=== PATIENT | female | born 1975 | race African-American/Black ===

== ENCOUNTER 2018-01-21 08:06 | Emergency (ER) | payer OTHER ==
--- OUTSIDE RECORDS SUMMARY | 2018-01-21 08:09 | XMS REPORT | Clinical Summary ---
:1975 Author Organization [facility] Address [address] [place] [address] Care Team Providers Name Role Phone Sha Lazaro MD Primary Care Provider Unavailable Allergies Active Allergy Reactions Severity Noted Date Comments Penicillins Hives, Other (See Comments) Medium 06/15/2016 nausea Current Medications Prescription Sig. Disp. Refills Start Date End Date Status amLODIPine (NORVASC) Take 10 mg by Active 10 MG tablet mouth daily. cyanocobalamin 1,000 Inject 1,000 Active mcg/mL injection mcg into the shoulder, thigh, or buttocks every 30 (thirty) days. "Mid-Month" enoxaparin (LOVENOX) Inject 40 mg Active 40 mg/0.4 mL syringe under the skin daily. promethazine Take 25 mg by Active (PHENERGAN) 25 MG mouth every 6 tablet (six) hours as needed for nausea or vomiting. amitriptyline Take 10 mg by Active (ELAVIL) 10 MG tablet mouth nightly as needed for sleep. baclofen (LIORESAL) Take 10 mg by Active 10 MG tablet mouth every 4 (four) hours as needed for muscle spasms. cyclobenzaprine Take 10 mg by Active (FLEXERIL) 10 MG mouth nightly tablet as needed for muscle spasms. omeprazole (PriLOSEC) Take 40 mg by Active 40 MG capsule mouth daily. ursodiol (ACTIGALL) Take 300 mg Active 300 mg capsule by mouth 2 (two) times a day. HYDROcodone-acetamino 07/05/2016 Active phen (NORCO 10-325) 10-325 mg per tablet traMADol (ULTRAM) 50 07/04/2016 Active mg tablet nitrofurantoin, Take 100 mg Discontinued macrocrystal-monohydr by mouth 2 7 ate, (MACROBID) 100 (two) times a MG capsule day. X 7 days. nitrofurantoin, Take 1 14 capsule 0 05/30/2017 macrocrystal-monohydr capsule (100 7 ate, (MACROBID) 100 mg total) by MG capsule mouth 2 (two) times a day for 7 days. nitrofurantoin, Take 1 14 capsule 0 05/30/2017 Discontinued macrocrystal-monohydr capsule (100 7 ate, (MACROBID) 100 mg total) by MG capsule mouth 2 (two) times a day for 7 days. X 7 days. Active Problems Problem Noted Date Epigastric pain 06/28/2016 Gastric bypass status for obesity 06/19/2016 Encounters Date Type Specialty Care Team Description 05/30/2017 Emergency Emergency Medicine Brad Moe, Abdominal pain of unknown cause (Primary Dx); Chronic neck pain; Urinary tract infection, site unspecified after 01/20/2017 Family History Medical History Relation Name Comments Arthritis Father Asthma Father Heart disease Father Arthritis Mother Asthma Mother Heart disease Mother Relation Name Status Comments Father Mother Social History Tobacco Use Types Packs/Day Years Used Date Never Smoker Alcohol Use Drinks/Week oz/Week Comments No socially Sex Assigned at Date Recorded Not on file Last Filed Vital Signs Vital Sign Reading Time Taken Blood Pressure 136/88 05/30/2017 6:31 PM CDT Pulse 68 05/30/2017 6:31 PM CDT Temperature 37.1 C (98.7 F) 05/30/2017 1:00 PM CDT Respiratory Rate 16 05/30/2017 6:31 PM CDT Oxygen Saturation 100% 05/30/2017 6:31 PM CDT Inhaled Oxygen Concentration - - Weight - - Height 160 cm (5' 3") 05/30/2017 3:42 PM CDT Body Mass Index - - Plan of Treatment Health Maintenance Due Date Last Done Comments PAP SMEAR 1998 INFLUENZA VACCINE 04/17/2018 Results ECG ED Preliminary Interpretation - NOT AN ORDER (05/31/2017 5:44 PM) Narrative Brad Moe MD 05/31/20175:44 PM ECG ED Preliminary Interpretation - Not an Order Performed by: ROBERT DOMINGUEZ Authorized by: BRAD MOE ECG reviewed by ED Physician in the absence of a strip roller: yes Interpretation: Interpretation: normal Rate: ECG rate:77 ECG rate assessment: normal Rhythm: Rhythm: sinus rhythm Ectopy: Ectopy: none QRS: QRS intervals:Normal Conduction: Conduction: normal ST segments: ST segments:Normal T waves: T waves: normal ECG 12 lead (05/30/2017 6:45 PM) Component Value Ref Range Ventricular rate 77 Atrial rate 77 MD interval 160 QRSD interval 82 QT interval 360 QTC interval 407 P axis 1 47 QRS axis 1 16 T wave axis 30 EKG impression Normal sinus rhythm-Normal ECG-In automated comparison with ECG of 15-JUN-2016 14:33,-No significant change was found- Specimen Performing Laboratory [facility] [address] [place] [address] CT Head Wo Contrast (05/30/2017 5:40 PM) Specimen Performing Laboratory [facility] [address] [place] [address] Narrative EXAMINATION: CT HEAD WO CONTRAST CLINICAL HISTORY: headache COMPARISON:None TECHNIQUE: Noncontrast enhanced images of the brain were obtained from the skull base to the vertex. Both soft tissue and bone reconstruction algorithms were performed.CT scans are performed using radiation dose reduction techniques. Technical factors are evaluated and adjusted to ensure appropriate moderation of exposure. Automated dose management technology is applied to adjust radiation exposure while achieving a diagnostic quality image. FINDINGS: Artifacts obscure some details. There is no evidence of acute intracranial hemorrhage or mass, hydrocephalus or midline shift, stroke or thrombus in the vessels. There is a cavum septum pellucidum. There is mild enlargement of the ventricles and extra axial space. The sella is slightly enlarged and partially empty. The sinuses, mastoid air cells and orbits do not show significant abnormality. There is nonspecific increased bone density. IMPRESSION: No acute findings in the brain. Nonspecific enlarged partially empty sella. I cannot exclude pseudotumor cerebri on this exam. [facility]-[id number] Procedure Note Interface, Radiology Results Incoming - 05/30/2017 5:47 PM CDT EXAMINATION: CT HEAD WO CONTRAST CLINICAL HISTORY: headache COMPARISON: None TECHNIQUE: Noncontrast enhanced images of the brain were obtained from the skull base to the vertex. Both soft tissue and bone reconstruction algorithms were performed. CT scans are performed using radiation dose reduction techniques. Technical factors are evaluated and adjusted to ensure appropriate moderation of exposure. Automated dose management technology is applied to adjust radiation exposure while achieving a diagnostic quality image. FINDINGS: Artifacts obscure some details. There is no evidence of acute intracranial hemorrhage or mass, hydrocephalus or midline shift, stroke or thrombus in the vessels. There is a cavum septum pellucidum. There is mild enlargement of the ventricles and extra axial space. The sella is slightly enlarged and partially empty. The sinuses, mastoid air cells and orbits do not show significant abnormality. There is nonspecific increased bone density. IMPRESSION: No acute findings in the brain. Nonspecific enlarged partially empty sella. I cannot exclude pseudotumor cerebri on this exam. [facility]-[id number] CT Cervical Spine Wo Contrast (05/30/2017 5:40 PM) Specimen Performing Laboratory [facility] [address] [place] [address] Narrative EXAMINATION:CT CERVICAL SPINE WO CONTRAST CLINICAL HISTORY:neck pain COMPARISON:None. TECHNIQUE: Axial helical CT images throughout theCERVICAL spine were performed without contrast. Sagittal and coronal reformatted images were generated. CT scans are performed using radiation dose reduction techniques. Technical factors are evaluated and adjusted to ensure appropriate moderation of exposure. Automated dose management technology is applied to adjust radiation exposure while achieving a highly diagnostic quality image. FINDINGS: Sagittal image reconstructions demonstrate straightening of the cervical lordosis which may be positional in nature. There is anterior spur formation with minimal disc space narrowing at C4-5. Axial images demonstrate the following: C1-2: No definite acute abnormalities. C2-3: No definite acute abnormalities. C3-4: No definite acute abnormalities. C4-5: There is minimal anterior spur formation. There is no definite acute abnormality. C5-6: No definite acute abnormality. C6-7: No definite acute abnormality. C7-T1: No definite acute abnormalities. There is no atlantoaxial subluxation. There is no definite prevertebral soft tissue swelling or hematoma. IMPRESSION: Minimal anterior spondylotic spurs at C4-5. No definite acute fracture or prevertebral hemorrhage. [facility]-[id number] Procedure Note Interface, Radiology Results 05/30/2017 5:56 PM CDT EXAMINATION: CT CERVICAL SPINE WO CONTRAST CLINICAL HISTORY: neck pain COMPARISON: None. TECHNIQUE: Axial helical CT images throughout the CERVICAL spine were performed without contrast. Sagittal and coronal reformatted images were generated. CT scans are performed using radiation dose reduction techniques. Technical factors are evaluated and adjusted to ensure appropriate moderation of exposure. Automated dose management technology is applied to adjust radiation exposure while achieving a highly diagnostic quality image. FINDINGS: Sagittal image reconstructions demonstrate straightening of the cervical lordosis which may be positional in nature. There is anterior spur formation with minimal disc space narrowing at C4-5. Axial images demonstrate the following: C1-2: No definite acute abnormalities. C2-3: No definite acute abnormalities. C3-4: No definite acute abnormalities. C4-5: There is minimal anterior spur formation. There is no definite acute abnormality. C5-6: No definite acute abnormality. C6-7: No definite acute abnormality. C7-T1: No definite acute abnormalities. There is no atlantoaxial subluxation. There is no definite prevertebral soft tissue swelling or hematoma. IMPRESSION: Minimal anterior spondylotic spurs at C4-5. No definite acute fracture or prevertebral hemorrhage. [facility]-[id number] CT Abdomen Pelvis W Contrast (05/30/2017 5:39 PM) Specimen Performing Laboratory [address] [address] Narrative EXAMINATION:CT ABDOMEN PELVIS W CONTRAST CLINICAL HISTORY:abdominal paindiarrhea TECHNIQUE: Multiple axial images of the abdomen and pelvis were obtained following intravenous administration of iodinated contrast. Sagittal and coronal computerized reformatted images were also obtained. Approximately 100 cc of Omnipaque 300 was used. Oral contrast was also used. All CT scan performed using radiation dose reduction techniques. Technical factors are evaluated and adjusted to ensure appropriate moderation of exposure. Automated dose management technology is applied to adjust the radiation dose to minimize expose whileachieving a diagnostic quality image. COMPARISON:10/02/2016 FINDINGS: Lung bases: The lung bases are clear. The visualized portion of the heart and thoracic aorta are unremarkable. Liver: There is no intrahepatic biliary dilatation or mass. The liver is normal in attenuation, contour and size. Gallbladder: Surgically absent. Pancreas: The pancreas is normal in caliber and attenuation. No inflammatory process. The pancreatic duct is within normal limits. Spleen: The spleen is normal in appearance.. Kidneys and ureters: The kidneys function symmetrically. There is no enhancing renal lesion. No hydronephrosis or renal stone. The ureters are normal in course and caliber. Adrenal glands: Unremarkable. GI tract: Postsurgical change of gastric bypass is again seen. Focal nodular thickening is seen of the distal stomach, series 2 image #[id number]. There has been interval resolution of mural thickening of the stomach. Partial contraction of the stomach is also noted. The small bowel is normal in course and caliber. The colon is unremarkable. No bowel wall thickening is identified. There is no acute inflammatory process. The appendix is normal. No right lower quadrant inflammation is seen. Ascites: None. Pelvis: The urinary bladder is within normal limits. Lobular in contour of the uterus is again seen, suggestive of fibroids.. Bones: Unremarkable. Retroperitoneum: No retroperitoneal or mesenteric lymphadenopathy is seen. The abdominal aorta is normal in course and caliber. The visceral and mesenteric vascular branches are patent. Abdominal wall: Unremarkable. IMPRESSION: No CT evidence of appendicitis, colitis or bowel obstruction. Nodular mural thickening of the distal stomach. Recommend clinical correlation and endoscopy for further evaluation. Incidental note of probable uterine fibroids. Pelvic ultrasound would be of use for confirmation. [id number] Procedure Note Interface, Radiology Results Incoming - 05/30/2017 5:54 PM CDT EXAMINATION: CT ABDOMEN PELVIS W CONTRAST CLINICAL HISTORY: abdominal pain diarrhea TECHNIQUE: Multiple axial images of the abdomen and pelvis were obtained following intravenous administration of iodinated contrast. Sagittal and coronal computerized reformatted images were also obtained. Approximately 100 cc of Omnipaque 300 was used. Oral contrast was also used. All CT scan performed using radiation dose reduction techniques. Technical factors are evaluated and adjusted to ensure appropriate moderation of exposure. Automated dose management technology is applied to adjust the radiation dose to minimize expose while achieving a diagnostic quality image. COMPARISON: 10/02/2016 FINDINGS: Lung bases: The lung bases are clear. The visualized portion of the heart and thoracic aorta are unremarkable. Liver: There is no intrahepatic biliary dilatation or mass. The liver is normal in attenuation, contour and size. Gallbladder: Surgically absent. Pancreas: The pancreas is normal in caliber and attenuation. No inflammatory process. The pancreatic duct is within normal limits. Spleen: The spleen is normal in appearance.. Kidneys and ureters: The kidneys function symmetrically. There is no enhancing renal lesion. No hydronephrosis or renal stone. The ureters are normal in course and caliber. Adrenal glands: Unremarkable. GI tract: Postsurgical change of gastric bypass is again seen. Focal nodular thickening is seen of the distal stomach, series 2 image #[id number]. There has been interval resolution of mural thickening of the stomach. Partial contraction of the stomach is also noted. The small bowel is normal in course and caliber. The colon is unremarkable. No bowel wall thickening is identified. There is no acute inflammatory process. The appendix is normal. No right lower quadrant inflammation is seen. Ascites: None. Pelvis: The urinary bladder is within normal limits. Lobular in contour of the uterus is again seen, suggestive of fibroids.. Bones: Unremarkable. Retroperitoneum: No retroperitoneal or mesenteric lymphadenopathy is seen. The abdominal aorta is normal in course and caliber. The visceral and mesenteric vascular branches are patent. Abdominal wall: Unremarkable. IMPRESSION: No CT evidence of appendicitis, colitis or bowel obstruction. Nodular mural thickening of the distal stomach. Recommend clinical correlation and endoscopy for further evaluation. Incidental note of probable uterine fibroids. Pelvic ultrasound would be of use for confirmation. [id number] Estimated GFR (05/30/2017 4:46 PM) Component Value Ref Range GFR Non Af Amer 61 mL/min/1.73 m2 GFR Af Amer 74 mL/min/1.73 m2 Comment: Chronic kidney disease: <60 mL/min/1.73m2 Kidney failure: <15 mL/min/1.73m2 The estimated GFR is calculated from the IDMS-traceable Modification of Diet in Renal Disease Equation. The accuracy of the calculation is poor when the creatinine is normal. Calculated values >90 mL/min/1.73m2 are not reported. This equation has not been validated in children (<18 years), women, the elderly (>70 years), or ethnic groups other than Caucasians and Americans. Specimen Performing Laboratory Plasma specimen [facility] DEPARTMENT OF PATHOLOGY AND GENOMIC MEDICINE [address] [facility] [place] [address] CBC with platelet and differential (05/30/2017 4:46 PM) Component Value Ref Range WBC 9.3 4.5 - 11.0 k/uL RBC 3.91 (L) 4.20 - 5.50 m/uL HGB 10.6 (L) 12.0 - 16.0 g/dL HCT 34.1 (L) 37.0 - 47.0 % MCV 87.2 82.0 - 100.0 fL MCH 27.1 27.0 - 34.0 pg MCHC 31.1 31.0 - 37.0 g/dL RDW - SD 51.4 37.0 - 55.0 fL MPV 10.0 6.9 - 11.0 fL Platelet count 376 150 - 400 K/uL Nucleated RBC 0.00 /100 WBC Neutrophils 60.1 39.0 - 69.0 % Lymphocytes 25.3 25.0 - 45.0 % Monocytes 7.8 0.0 - 10.0 % Eosinophils 5.6 (H) 0.0 - 5.0 % Basophils 0.9 0.0 - 1.0 % Immature granulocytes 0.3 0.0 - 1.0 % Specimen Performing Laboratory Blood [facility] DEPARTMENT PATHOLOGY AND [address] [address] Lipase level (05/30/2017 4:46 PM) Component Value Ref Range Lipase 37 13 - 60 U/L Specimen Performing Laboratory Plasma specimen [facility] PATHOLOGY [address] [address] Amylase level (05/30/2017 4:46 PM) Component Value Ref Range Amylase 41 13 - 73 U/L Specimen Performing Laboratory Plasma specimen [facility] PATHOLOGY [address] [address] Comprehensive metabolic panel (05/30/2017 4:46 PM) Component Value Ref Range Sodium 140 135 - 148 mEq/L Potassium 4.4 3.5 - 5.0 mEq/L Chloride 104 98 - 112 mEq/L CO2 24 24 - 31 mEq/L Anion gap 12 7 - 15 mEq/L Comment: Starting from December , anion gap calculation no longer incorporates potassium. Please note the change. BUN 14 6 - 20 mg/dL Creatinine 1.0 (H) 0.5 - 0.9 mg/dL Glucose 88 65 - 99 mg/dL Calcium 8.9 8.3 - 10.2 mg/dL Protein 7.2 6.3 - 8.3 g/dL Albumin 3.9 3.5 - 5.0 g/dL A/G ratio 1.2 0.7 - 3.8 Alkaline phosphatase 132 (H) 35 - 104 U/L AST 30 10 - 35 U/L ALT 29 5 - 50 U/L Total bilirubin <0.2 0.2 - 1.2 mg/dL Specimen Performing Laboratory Plasma specimen [facility] PATHOLOGY [address] [address] Urinalysis screen and microscopy, with reflex to culture (05/30/2017 3:05 PM) Component Value Ref Range Specimen site Clean catch Color, UA Yellow Appearance, UA Sl Cloudy Specific gravity, UA 1.029 1.001 - 1.030 pH, UA 5.0 5.0 - 9.0 Protein, UA Negative Negative Glucose, UA Negative Negative Ketones, UA Negative Negative Bilirubin, UA Negative Negative Blood, UA Moderate (A) Negative Nitrite, UA Negative Negative Urobilinogen, UA <2.0 <2.0 E.U./dL Leukocyte esterase, UA Trace (A) Negative Epithelial cells, UA >20 /HPF Round epithelial cells, UA 1 0 - 5 /HPF WBC, UA 5 (H) 0 - 4 /HPF RBC, UA 6 (H) 0 - 2 /HPF Bacteria, UA Few None seen Yeast, UA None seen Yeast with pseudohyphae, UA None seen Calcium oxalate crystals, UA Few Hyaline casts, UA 2-5 /LPF Specimen Performing Laboratory Urine [facility] DEPARTMENT OF PATHOLOGY AND GENOMIC MEDICINE [address] [place] [id number] hCG qualitative, urine screen (05/30/2017 3:05 PM) Component Value Ref Range hCG qualitative, urine NegativeComment: Sensitivity of HCG test: 25 mIU/ml Specimen Performing Laboratory Urine [facility] DEPARTMENT OF PATHOLOGY AND GENOMIC MEDICINE [address] [place] [id number] Urine drugs of abuse screen (05/30/2017 3:05 PM) Component Value Ref Range Amphetamine screen, urine Negative Methamphetamine screen, urine SEE COMMENT Comment: Footnote--------- Test Not Performed. Barbiturate screen, urine Positive (A) Benzodiazepine screen, urine Positive (A) Cocaine screen, urine Negative Methadone screen, urine SEE COMMENT Comment: Footnote--------- Test Not Performed. Opiates screen, urine Positive (A) Phencyclidine screen, urine Negative Cannabinoid screen, urine Positive (A) Tricyclic screen, urine Positive (A) Comment: Drug screen minimum concentration of detectability [id number] ng/mL [id number] ng/mL Barbiturates 300 ng/mL Uodujtxnhjnkaav639 ng/mL Ieeskif449 ng/mL Dobzinyue854 ng/mL Zvsxkbu493 ng/mL Phencyclidine 25 ng/mL Hgrqyrfxcqin34 ng/mL Bdxwcpwsha0811 ng/mL Negative test results indicates presumptive evidence of lack of clinically significant drug concentration in this urine specimen. Positive test results are presumptive evidence of clinically significant drug concentration in this urine specimen. Testing performed for medical purposes only. Specimen Performing Laboratory Urine [facility] DEPARTMENT OF PATHOLOGY AND GENOMIC MEDICINE [id number] [place] [id number] Gram stain (05/30/2017 3:05 PM) Component Value Ref Range Gram stain result No WBC's Occasional Gram positive rods Comment: Specimen Information Specimen Source: Urine Specimen Site: See UA Specimen Performing Laboratory Urine [facility] DEPARTMENT OF PATHOLOGY AND GENOMIC MEDICINE [address] [place] [id number] Urine culture (05/30/2017 3:05 PM) Component Value Ref Range Urine culture isolate Mixed Gram positive roopa 10-3 cfu/ml (A) Comment: Specimen Information Specimen Source: Urine Specimen Site: See UA Specimen Performing Laboratory Urine [facility] DEPARTMENT OF PATHOLOGY AND GENOMIC MEDICINE [address] [place] [id number] after 01/20/2017 Insurance Payer Benefit Plan / Group Subscriber ID Type Phone Address [facility] xxxxxxxxx O
--- OUTSIDE RECORDS SUMMARY | 2018-01-21 08:09 | XMS REPORT | Clinical Summary ---
:1975 Author Organization [facility] Address [address] [place] [address] Phone Care Team Providers Name Role Phone Unavailable Primary Care Provider Unavailable Allergies Active Allergy Reactions Severity Noted Date Comments Penicillins Hives, Other (See Comments) Medium 06/15/2016 nausea Nsaids (Non-Steroidal 09/13/2017 Anti-Inflammatory Drug) Current Medications Prescription Sig. Disp. Refills Start Date End Date Status amLODIPine Take 10 mg by Active (NORVASC) 10 MG mouth daily. tablet SUMAtriptan Take 50 mg by Active (IMITREX) 50 MG mouth once as tablet needed for Headaches. HYDROcodone-acetami Take 1 tablet Active nophen (NORCO by mouth 2 5-325) 5-325 mg per (two) times tablet daily . butalbital-acetamin Take 1-2 20 tablet 0 09/13/2017 09/13/2018 Active ophen-caffeine tablets by (FIORICET) mouth every 6 50-325-40 mg per (six) hours as tablet needed for Headaches. butalbital-aspirin- Take 1 capsule 11/09/2017 Discontinued caffeine-codeine by mouth every (BUTALBITAL-ASPIRIN 4 (four) hours -CAFFEINE-CODEINE) as needed for 50-20-789-40 mg Pain. capsule meclizine Take 1 tablet 30 tablet 0 09/13/2017 09/23/2017 (ANTIVERT) 12.5 mg (12.5 mg tablet total) by mouth 3 (three) times daily as needed for up to 10 days. Active Problems Not on file Encounters Date Type Specialty Care Team Description 11/09/2017 Orders Only Lab Cheri Gill, Chronic intractable MD headache, unspecified Gallo Mota, headache type (Primary MD Dx) 11/09/2017 Hospital Encounter Radiology Cheri Gill, Chronic intractable MD headache, unspecified Gallo Mota, headache MD type;Intractable migraine without status migrainosus, unspecified migraine type 11/05/2017 Outside Orders Central Scheduling Cheri Gill, Chronic intractable MD headache, unspecified headache type (Primary Dx);Intractable migraine without status migrainosus, unspecified migraine type 09/19/2017 Hospital Encounter Cheri Gill, Nonintractable MD headache, unspecified chronicity pattern, unspecified headache type 09/13/2017 Emergency Emergency Medicine Tu, Jessica, DO Nonintractable headache, unspecified chronicity pattern, unspecified headache type (Primary Dx);Dizziness 08/31/2017 Outside Orders Central Scheduling System, Provider Nonintractable Not In headache, unspecified chronicity pattern, unspecified headache type (Primary Dx) after 01/20/2017 Family History Medical History Relation Name Comments Hypertension Father Hypertension Mother Hypertension Other grandmother Relation Name Status Comments Father Mother Other grandmother Social History Tobacco Use Types Packs/Day Years Used Date Never Smoker Smokeless Tobacco: Never Used Alcohol Use Drinks/Week oz/Week Comments No Sex Assigned at Date Recorded Not on file Last Filed Vital Signs Vital Sign Reading Time Taken Blood Pressure 128/80 11/09/2017 3:30 PM SPECIAL EVENTS COORDINATOR Pulse 66 11/09/2017 3:30 PM SPECIAL EVENTS COORDINATOR Temperature 36.9 C (98.4 F) 11/09/2017 12:17 PM SPECIAL EVENTS COORDINATOR Respiratory Rate 18 11/09/2017 3:30 PM SPECIAL EVENTS COORDINATOR Oxygen Saturation 99% 11/09/2017 3:30 PM SPECIAL EVENTS COORDINATOR Inhaled Oxygen Concentration - - Weight 76.7 kg (169 lb) 11/09/2017 12:17 PM SPECIAL EVENTS COORDINATOR Height 160 cm (5' 3") 11/09/2017 12:17 PM SPECIAL EVENTS COORDINATOR Body Mass Index 29.94 11/09/2017 12:17 PM SPECIAL EVENTS COORDINATOR Plan of Treatment Not on file Results Cytology (11/09/2017 5:00 PM) Component Value Ref Range Case Report Medical Cytology Report Case: [id number] Authorizing Provider:Gallo Mota MDCollected: 11/09/2017 1700 [facility] Pathologist: Denzel Umana MD Specimen:CSF, tube 2 DIAGNOSIS CEREBROSPINAL FLUID (CYTOSPINS): - NO MALIGNANT CELLS IDENTIFIED Signing Pathologist Direct Phone Line: [phone] CPT Code(s) 25345 CLINICAL DATA Migraines SPECIMEN SOURCE CEREBROSPINAL FLUID (CYTOSPINS) GROSS DESCRIPTION 3 mls colorless; 2 cytospins Collected: [id number] Received: [id number] STATEMENT OF ADEQUACY Satisfactory Technical component was performed at [facility], Department of Pathology, [address] [place] [id number], Professional component was performed [facility], at Department of Pathology, [address] [place] [address], Specimen Performing Laboratory Cerebrospinal Fluid - CSF, tube [address] [address] CSF culture + gram stain (11/09/2017 2:55 PM) Component Value Ref Range Result No growth Gram Stain Result <1+ WBCs Gram Stain Result No organisms seen Specimen Performing Laboratory Cerebrospinal Fluid - Lumbar Puncture [address] [address] Protein Electrophoresis, CSF (11/09/2017 2:52 PM) Component Value Ref Range Scan Result Protein electrophoresis, CSF Refer to individual Protein Electrophoresis, CSF results. Specimen Performing Laboratory Cerebrospinal Fluid - Lumbar Puncture [facility] [address] [address] IgG Index (CSF + Blood) (11/09/2017 2:52 PM) Component Value Ref Range Synthesis Rate IgG, CSF -4.0 -9.9 TO +3.3 mg/24 h Igg Index,Csf 0.44 LESS THAN 0.66 Albumin, CSF 15.2 8.0 - 42.0 mg/dL IgG, CSF 2.0 0.8 - 7.7 mg/dL Igg,Serum 995 694 - 1618 mg/dL Albumin, Serum 3.3 (L) 3.7 - 5.1 g/dL Comment: The IgG Synthesis rate, CSF and IgG index, CSF are two formulae for estimating the amount of IgG produced in the central nervous system. Evidence of increased synthesis of IgG provides support for the diagnosis of multiple sclerosis. Specimen Performing Laboratory Cerebrospinal Fluid - Lumbar Puncture [facility] [address] [address] Narrative Performing Lab [facility] [address] [address] Lois Mehta MD, PhD Immunoglobulin G, CSF (11/09/2017 2:52 PM) Component Value Ref Range IgG, CSF 2.0 0.8 - 7.7 mg/dL Specimen Performing Laboratory Cerebrospinal Fluid - Lumbar Puncture [facility] [address] [address] Narrative Performing Lab [facility] [address] [address] Lois Mehta MD, PhD Protein Electrophoresis, CSF (11/09/2017 2:52 PM) Component Value Ref Range Protein Electrophoresis, CSF Pre-Albumin (CSF) 4.5 1.3 - 6.9 relative % Albumin, CSF 56.7 51.9 - 67.8 relative % Otaew-3-Pnyuhfby CSF 5.0 1.8 - 6.5 relative % Myagz-7-Odkcsqmw CSF 8.0 4.6 - 10.8 relative % Beta Globulin (CSF) 13.2 7.8 - 18.2 relative % Gamma Globulin (CSF) 12.6 4.8 - 17.6 relative % Interpretation SEE BELOW See Note: Comment: Reference Range: PATTERN APPEARS NORMAL No abnormal proteins detected by visual inspection of the electrophoretic membrane.CSF electrophoretic pattern appears normal. Specimen Performing Laboratory Cerebrospinal Fluid - Lumbar Puncture [facility] [address] [address] Narrative Performing Lab [facility] [address] [address] Lois Mehta MD, PhD Oligoclonal bands (11/09/2017 2:52 PM) Component Value Ref Range Oligo Bands NO BANDS NO BANDS Comment: No oligoclonal bands were identified in this patient's CSF when compared to their corresponding serum sample. Oligoclonal bands are present in the CSF of more than 85% of patients with clinically definite multiple sclerosis (MS). To distinguish between oligoclonal bands in the CSF due to a peripheral gammopathy and oligoclonal bands due to local production in the INVESTOR RELATIONS DIRECTOR, serum and CSF should be tested simultaneously. Oligoclonal bands can however be observed in a variety of other diseases, e.g., subacute sclerosing panencephalitis, inflammatory polyneuropathy, INVESTOR RELATIONS DIRECTOR lupus, and brain tumors and infarctions. The clinical significance of a numerical band count, determined by isoelectric focusing, has not been definitively defined. The data should be interpreted in conjunction with all pertinent clinical and laboratory data for this patient. FINAL RESOLUTION Specimen Performing Laboratory Cerebrospinal Fluid - Lumbar Puncture [facility] [address] [address] Narrative Performing Lab [facility] [address] [address] Lois Mehta MD, PhD CSF cell count with differential (11/09/2017 2:52 PM) Component Value Ref Range Appearance Clear Clear Color Colorless Colorless RBCs 0 0 - 5 /cu mm WBCs 0 <=5 /cu mm RBCs Fresh? Not Applicable # of Cells Diff'd 0 Tube Number 1 Specimen Performing Laboratory Cerebrospinal Fluid - Lumbar Puncture [address] [address] VDRL, CSF (11/09/2017 2:52 PM) Component Value Ref Range VDRL, CSF Nonreactive Nonreactive Specimen Performing Laboratory Cerebrospinal Fluid - Lumbar Puncture [address] [address] Protein, CSF (11/09/2017 2:52 PM)Only the most recent of2 resultswithin the time period is included. Component Value Ref Range Protein, Total (CSF) 31 15 - 45 mg/dL Specimen Performing Laboratory Cerebrospinal Fluid - Lumbar Puncture [facility] [address] [address] Narrative Performing Lab [facility] [address] [address] Lois Mehta MD, PhD Glucose, CSF (11/09/2017 2:52 PM) Component Value Ref Range Glucose, CSF 48 40 - 70 mg/dL Specimen Performing Laboratory Cerebrospinal Fluid - Lumbar Puncture [address] [address] [place] Lumbar Puncture Image-Guided (11/09/2017 2:15 PM) Specimen Performing Laboratory [facility] Narrative FINAL REPORT Procedure: Fluoroscopic guided diagnostic lumbar puncture Radiologist: Timmy Wynn M.D. CLINICAL HISTORY: Chronic headaches [R51] Intractable migraine [G43.919] DESCRIPTION OF PROCEDURE: After obtaining informed consent, the patient was prepped and draped on the fluoroscopy table following the usual sterile fashion for lumbar puncture. 1% lidocaine was administered for local anesthesia. Using fluoroscopic guidance, a 22-gauge spinal needle advanced into the thecal sac at the L2-L3 level. The opening pressure was approximately 25 cm of water. The requested 20 cc of clear spinal fluid was removed and sent to the laboratory for the requested studies.There were no periprocedural complications. Fluoroscopic images: 1. Fluoroscopic time: 0.1 minutes. Impression: Successful fluoroscopic guided lumbar puncture. Signed: Timmy Wynn MD Report Verified Date/Time:11/09/2017 16:16:13 Reading Location: [address] Neuro Reading Room Procedure Note Interface, External Ris In - 11/09/2017 4:18 PM SPECIAL EVENTS COORDINATOR FINAL REPORT Procedure: Fluoroscopic guided diagnostic lumbar puncture Radiologist: Timmy Wynn M.D. CLINICAL HISTORY: Chronic headaches [R51] Intractable migraine [G43.919] DESCRIPTION OF PROCEDURE: After obtaining informed consent, the patient was prepped and draped on the fluoroscopy table following the usual sterile fashion for lumbar puncture. 1% lidocaine was administered for local anesthesia. Using fluoroscopic guidance, a 22-gauge spinal needle advanced into the thecal sac at the L2-L3 level. The opening pressure was approximately 25 cm of water. The requested 20 cc of clear spinal fluid was removed and sent to the laboratory for the requested studies. There were no periprocedural complications. Fluoroscopic images: 1. Fluoroscopic time: 0.1 minutes. Impression: Successful fluoroscopic guided lumbar puncture. Signed: Timmy Wynn MD Report Verified Date/Time: 11/09/2017 16:16:13 Reading Location: [address] Neuro Reading Room Screen, urine (11/09/2017 10:08 AM)Only the most recent of2 resultswithin the time period is included. Component Value Ref Range Preg Test, Ur Negative Specimen Performing Laboratory Urine [facility] [address] [place] [address] MR brain without IV contrast (09/19/2017 2:10 PM) Specimen Performing Laboratory RIS Narrative FINAL REPORT MRI brain without contrast 09/19/2017 2:00 PM CLINICAL INDICATION: R51\\E\\S\\E\\Headache TECHNIQUE: Multiplanar, multisequence MR imaging of the brain was performed utilizing the following imaging sequences: Axial T1, T2, FLAIR, GRE, and DWI; sagittal and coronal T1-weighted images. COMPARISON: CT brain 09/13/2017 FINDINGS: There is no infarct, hematoma, mass, extra-axial collection, or hydrocephalus. Normal appearing flow-voids are present in the major intracranial vascular structures. 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 There is a cavum septi pellucidi et vergae. The sellar and pineal regions are normal. The craniovertebral junction is intact. The orbits, face, and skull base are without worrisome finding. IMPRESSION: Unremarkable noncontrast examination. Signed: Juliocesar Kraus MD Report Verified Date/Time:09/19/2017 14:30:16 Reading Location: [address] Neuro Reading Room Procedure Note Interface, External Ris In - 09/19/2017 2:32 PM SPECIAL EVENTS COORDINATOR FINAL REPORT MRI brain without contrast 09/19/2017 2:00 PM CLINICAL INDICATION: R51\\E\\S\\E\\Headache TECHNIQUE: Multiplanar, multisequence MR imaging of the brain was performed utilizing the following imaging sequences: Axial T1, T2, FLAIR, GRE, and DWI; sagittal and coronal T1-weighted images. COMPARISON: CT brain 09/13/2017 FINDINGS: There is no infarct, hematoma, mass, extra-axial collection, or hydrocephalus. Normal appearing flow-voids are present in the major intracranial vascular structures. 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 There is a cavum septi pellucidi et vergae. The sellar and pineal regions are normal. The craniovertebral junction is intact. The orbits, face, and skull base are without worrisome finding. IMPRESSION: Unremarkable noncontrast examination. Signed: Juliocesar Kraus MD Report Verified Date/Time: 09/19/2017 14:30:16 Reading Location: [facility] C013V Neuro Reading Room -SCANNED (09/14/2017 11:04 AM)ED ECG Interpretation (09/13/2017 5:12 PM) Narrative Jessica Florian, 09/13/20175:12 PM ECG/EKG Interpretation Date/Time: 09/13/2017 4:59 PM Performed by: JESSICA FLORIAN Authorized by: JESSICA FLORIAN The ECG was interpreted by ED physician. This ECG was not compared with previous ECG(s).The ECG is interpreted as sinus rhythm. Rate is normal rate. Heart rate is [address] segments normal. T waves normal. [place] is normal. Clinical Impression: normal ECGECG reviewed and does not meet STEMI criteria. CT brain without IV contrast (09/13/2017 2:16 PM) Specimen Performing Laboratory [place] RIS Narrative FINAL REPORT CT Head without contrast CLINICAL HISTORY: HEADACHE dizziness TECHNIQUE: Contiguous axial images through the head without contrast. This exam was performed according to the departmental dose optimization program which includes automated exposure control, adjustment of the mA and/or kV according to the patient size, and/or use of an iterative reconstruction technique. COMPARISON: None FINDINGS: There is no CT evidence of acute infarct or intracranial hemorrhage. There is mild distention of a cavum septum pellucidum without overall ventriculomegaly. There is no midline shift. The skull is intact. The visualized paranasal sinuses are well-aerated. IMPRESSION: No CT evidence of acute infarct, hemorrhage, or hydrocephalus. Signed: Timmy Wynn MD Report Verified Date/Time:09/13/2017 14:16:33 Reading Location: [facility] C013W Consult Reading Room Procedure Note Interface, External Ris In - 09/13/2017 2:19 PM SPECIAL EVENTS COORDINATOR FINAL REPORT CT Head without contrast CLINICAL HISTORY: HEADACHE dizziness TECHNIQUE: Contiguous axial images through the head without contrast. This exam was performed according to the departmental dose optimization program which includes automated exposure control, adjustment of the mA and/or kV according to the patient size, and/or use of an iterative reconstruction technique. COMPARISON: None FINDINGS: There is no CT evidence of acute infarct or intracranial hemorrhage. There is mild distention of a cavum septum pellucidum without overall ventriculomegaly. There is no midline shift. The skull is intact. The visualized paranasal sinuses are well-aerated. IMPRESSION: No CT evidence of acute infarct, hemorrhage, or hydrocephalus. Signed: Timmy Wynn MD Report Verified Date/Time: 09/13/2017 14:16:33 Reading Location: [facility] C013W Consult Reading Room with platelet count + automated diff (09/13/2017 12:56 PM) Component Value Ref Range WBC 9.9 4.0 - 10.0 K/L RBC 4.47 4.00 - 5.00 M/L Hemoglobin 12.2 12.0 - 15.0 GM/DL Hematocrit 38.1 36.0 - 45.0 % MCV 85.1 82.0 - 99.0 fL MCH 27.3 27.0 - 33.0 pg MCHC 32.1 32.0 - 36.0 GM/DL RDW 17.7 (H) 10.3 - 14.2 % Platelets 338 150 - 430 K/CU MM MPV 7.9 6.5 - 10.5 fL nRBC 0 0 - 0 /100 WBC % Neutros 60 % % Lymphs 28 % % Monos 6 % % Eos 5 % % Baso 1 % # Neutros 5.90 1.80 - 8.00 K/L # Lymphs 2.80 1.48 - 4.50 K/L # Monos 0.60 0.00 - 1.30 K/L # Eos 0.50 0.00 - 0.50 K/L # Baso 0.10 0.00 - 0.20 K/L Specimen Performing Laboratory Blood - Arm, Right [facility] [address] [place] [address] Troponin I (09/13/2017 12:56 PM) Component Value Ref Range Troponin I <0.03 0.00 - 0.15 ng/mL Specimen Performing Laboratory Blood - Arm, [facility] [address] [place] [address] Narrative Troponin I (TnI) levels must be interpreted in the context of the presenting symptoms and the clinical findings. Elevated TnI levels indicate myocardial damage, but are not specific for ischemic heart disease. Elevated TnI levels are seen in patients with other cardiac conditions (including myocarditis and congestive heart failure), and slight TnI elevations occur in patients with other conditions, including sepsis, renal failure, acidosis, acute neurological disease, and persistent tachyarrhythmia. CBC with platelet count + automated diff (09/13/2017 12:56 PM) Specimen Performing Laboratory Blood Narrative The following orders were created for panel order CBC with platelet count + automated diff. Procedure Abnormality Status --------- ------ CBC with platelet count ...[[id number]]AbnormalFinal result Please view results for these tests on the individual orders. Creatine Kinase (CK), Total and MB (09/13/2017 12:56 PM) Component Value Ref Range Total CK 99 25 - 235 U/L CK-MB 0.7 0.0 - 4.9 ng/mL MB Relative Index 0.7 % Specimen Performing Laboratory Blood - Arm, [facility] [address] [place] [address] Narrative CK-MB Reference Range: <5 Normal 5-10 Borderline >10Abnormal Comprehensive metabolic panel (09/13/2017 12:56 PM) Component Value Ref Range Protein, Total 8.0Comment: Specimen slightly hemolyzed 6.0 - 8.5 gm/dL Albumin 4.1Comment: Specimen slightly hemolyzed 3.5 - 5.0 g/dL Alkaline Phosphatase 158 (H) 30 - 115 U/L Total Bilirubin <0.2Comment: Specimen slightly hemolyzed 0.1 - 1.2 mg/dL Sodium 139 135 - 148 meq/L Potassium 3.9Comment: Specimen slightly hemolyzed 3.6 - 5.5 meq/L Chloride 114 (H) 98 - 106 meq/L CO2 17 (L) 20 - 29 meq/L BUN 11 10 - 26 mg/dL Creatinine 1.00Comment: Specimen slightly hemolyzed 0.50 - 1.20 mg/dL Glucose 88 70 - 110 mg/dL Calcium 9.0 8.5 - 10.5 mg/dL AST 30Comment: Specimen slightly hemolyzed 5 - 40 U/L ALT 23Comment: Specimen slightly hemolyzed 5 - 50 U/L EGFR Comment: INSUFFICIENT CLINICAL DATA TO mL/min/1.73 sq m CALCULATE ESTIMATED GFR. Specimen Performing Laboratory Blood - Arm, Right [facility] [address] [place] [address] after 01/20/2017
--- OUTSIDE RECORDS SUMMARY | 2018-01-21 08:10 | XMS REPORT ---
:1975 [facility] [address] [address] [place] [id number] Care Team Providers Name Role Phone ESTEFANI NAIR Unavailable Unavailable JESSICA FLORIAN Unavailable Unavailable Problems This patient has no known problems. Allergies, Adverse Reactions, Alerts This patient has no known allergies or adverse reactions. Medications This patient has no known medications. Results Test Description Test Time Test Comments Text Results Atomic Results Result Comments CYTOLOGY 2017-11-13 13:27:00 Medical Cytology Report Case: [id number] Authorizing Provider: Gallo Mota MD Collected: 11/09/2017 1700 Ordering Location: [facility] Received: 11/12/2017 1258 Pathologist: Denzel Umana MD Specimen: CSF, tube 2 CEREBROSPINAL FLUID (CYTOSPINS): - NO MALIGNANT CELLS IDENTIFIED Signing Pathologist Direct Phone Line: [phone] signed by Denzel Umana MD on 11/13/2017 at 1:27 [id number] FLUID (CYTOSPINS) 3 mls colorless; 2 cytospinsCollected: [id number]: [id number], [facility] of [facility]ology, [address] [place] [address], [facility], [address] [place] [address], CSF CULTURE + GRAM STAIN 2017-11-12 11:45:00 Test Item Value Reference Range Comments CULTURE (BEAKER) (test rszy=5605) No growth GRAM STAIN RESULT (BEAKER) (test eazk=0322) <1+ WBCs GRAM STAIN RESULT (BEAKER) (test amqk=24116) No organisms seen VDRL, [id number] 01:47:00 Test Item Value Reference Range Comments SYPHILIS VDRL QUANTITATION CSF (BEAKER) (test Nonreactive Nonreactive piud=799) CSF CELL COUNT [id number] 17:40:00 Test Item Value Reference Range Comments APPEARANCE CSF (BEAKER) (test lznl=956) Clear Clear COLOR CSF (BEAKER) (test rzih=710) Colorless Colorless RBC CSF (BEAKER) (test ijdo=005) 0 /cu mm 0-5 WBC CSF (BEAKER) (test iggl=7265) 0 /cu mm <=5 RBCS FRESH (BEAKER) (test dxmf=7774) Not Applicable NUMBER OF CELLS DIFF'D (BEAKER) (test 0 hunh=5761) TUBE NUMBER CSF (BEAKER) (test tebs=8809) 1 FL, LUMBAR PUNCTURE, [id number] 16:16:00Reason for Exam:->Chronic headaches [R51] Reason for Exam:->Intractable migraine [G43.919]FINAL REPORT Procedure: Fluoroscopic guided diagnostic lumbar puncture Radiologist: Timmy Wynn M.D. CLINICAL HISTORY: Chronic headaches [ R51]Intractable migraine [G43.919] DESCRIPTION OF PROCEDURE: After obtaining [...] no periprocedural complications. Fluoroscopic images: 1. Fluoroscopic time : 0.1 minutes. Impression: Successful fluoroscopic guided lumbar puncture. Signed: Timmy Wynn MDReport Verified Date/Time: 11/09/2017 16:16:13 Reading Location: [address] Neuro Reading Room PROTEIN, [id number] 16:11:00 Test Item Value Reference Range Comments PROTEIN CSF (BEAKER) (test qxbe=094) 29 mg/dL 15-45 GLUCOSE, [id number] 16:10:00 Test Item Value Reference Range Comments GLUCOSE CSF (BEAKER) (test cvuw=312) 48 mg/dL 40-70 SCREEN, [id number] 10:16:00 Test Item Value Reference Range Comments TEST URINE (BEAKER) (test tywr=669) Negative MR, BRAIN, WITHOUT [id number] 14:30:00FINAL REPORT MRI brain without contrast 09/19/2017 2:00 PM CLINICAL INDICATION:R51\E\S \E\Headache TECHNIQUE: Multiplanar, multisequence MR imaging of the brain was performed utilizing the following imaging sequences: Axial T1, T2, FLAIR, GRE, and DWI; sagittal and coronal T1-weighted images. COMPARISON: CT brain 2016 FINDINGS: There is no infarct, hematoma, mass, [...] IMPRESSION: Unremarkable noncontrast examination. Signed: Juliocesar Kraus Verified Date/Time: 09/19/2017 14:30:16 Reading Location: [address] Neuro Reading Room CT, BRAIN, WITHOUT [id number] 14:16:00Reason for exam:->HEADACHEIs the patient ?-> UnknownWhat is the patient's sedation requirement?->No SedationFINAL REPORT CT Head without contrast CLINICAL HISTORY: HEADACHEdizziness TECHNIQUE: Contiguous axial images through the head [...] visualized paranasal sinuses are well-aerated. IMPRESSION: No CTevidence of acute infarct, hemorrhage, or hydrocephalus. Signed : Timmy Wynn MDReport Verified Date/Time: 09/13/2017 14:16:33 Reading Location: [address] Consult Reading Room TROPONIN [id number] 13:37:00 Test Item Value Reference Range Comments TROPONIN I (BEAKER) (test lbeb=669) < ng/mL 0.00-0.15 Troponin I (TnI) levels must be interpreted [...] failure, acidosis, acute neurological disease, and persistent tachyarrhythmia.CREATINE KINASE (CK), TOTAL AND [id number] 13:36:00 Test Item Value Reference Range Comments CREATINE KINASE TOTAL (BEAKER) (test sayc=860) 99 U/L 25-235 CREATINE KINASE-MB (BEAKER) (test sldi=733) 0.7 ng/mL 0.0-4.9 CREATINE KINASE-MB INDEX (BEAKER) (test reoz=865) 0.7 % CK-MB Reference Range:<5 Normal5-10 Borderline>10 AbnormalCOMPREHENSIVE METABOLIC [id number] 13:35:00 Test Item Value Reference Range Comments TOTAL PROTEIN (BEAKER) 8.0 gm/dL 6.0-8.5 Specimen slightly (test rfsm=954) hemolyzed ALBUMIN (BEAKER) (test 4.1 g/dL 3.5-5.0 Specimen slightly xcya=4119) hemolyzed ALKALINE PHOSPHATASE 158 U/L 30-115 (BEAKER) (test aavh=421) BILIRUBIN TOTAL (BEAKER) < mg/dL 0.1-1.2 Specimen slightly (test ddyu=846) hemolyzed SODIUM (BEAKER) (test 139 meq/L 135-148 ijaq=469) POTASSIUM (BEAKER) (test 3.9 meq/L 3.6-5.5 Specimen slightly lmib=001) hemolyzed CHLORIDE (BEAKER) (test 114 meq/L 98-106 bere=324) CO2 (BEAKER) (test 17 meq/L 20-29 kmjm=054) BLOOD UREA NITROGEN 11 mg/dL 10-26 (BEAKER) (test hkep=574) CREATININE (BEAKER) (test 1.00 mg/dL 0.50-1.20 Specimen slightly xafd=313) hemolyzed GLUCOSE RANDOM (BEAKER) 88 mg/dL 70-110 (test kcjm=102) CALCIUM (BEAKER) (test 9.0 mg/dL 8.5-10.5 zmli=557) AST (SGOT) (BEAKER) (test 30 U/L 5-40 Specimen slightly soih=373) hemolyzed ALT (SGPT) (BEAKER) (test 23 U/L 5-50 Specimen slightly fdmx=043) hemolyzed EGFR (BEAKER) (test mL/min/1.73 sq m INSUFFICIENT CLINICAL DATA menl=9907) TO CALCULATE ESTIMATED GFR. CBC W/PLT COUNT & AUTO [id number] 13:15:00 Test Item Value Reference Range Comments WHITE BLOOD CELL COUNT (BEAKER) (test bvcv=287) 9.9 K/ L 4.0-10.0 RED BLOOD CELL COUNT (BEAKER) (test ytlq=675) 4.47 M/ L 4.00-5.00 HEMOGLOBIN (BEAKER) (test sova=613) 12.2 GM/DL 12.0-15.0 HEMATOCRIT (BEAKER) (test tgqv=923) 38.1 % 36.0-45.0 MEAN CORPUSCULAR VOLUME (BEAKER) (test riqh=471) 85.1 fL 82.0-99.0 MEAN CORPUSCULAR HEMOGLOBIN (BEAKER) (test 27.3 pg 27.0-33.0 vsji=839) MEAN CORPUSCULAR HEMOGLOBIN CONC (BEAKER) (test 32.1 GM/DL 32.0-36.0 oxyi=861) RED CELL DISTRIBUTION WIDTH (BEAKER) (test 17.7 % 10.3-14.2 hkem=267) PLATELET COUNT (BEAKER) (test rekn=435) 338 K/CU MM 150-430 MEAN PLATELET VOLUME (BEAKER) (test ujom=106) 7.9 fL 6.5-10.5 NUCLEATED RED BLOOD CELLS (BEAKER) (test 0 /100 WBC 0-0 ateb=493) NEUTROPHILS RELATIVE PERCENT (BEAKER) (test 60 % rpbv=045) LYMPHOCYTES RELATIVE PERCENT (BEAKER) (test 28 % bggq=771) MONOCYTES RELATIVE PERCENT (BEAKER) (test 6 % osbh=038) EOSINOPHILS RELATIVE PERCENT (BEAKER) (test 5 % tqae=883) BASOPHILS RELATIVE PERCENT (BEAKER) (test 1 % tzrb=203) NEUTROPHILS ABSOLUTE COUNT (BEAKER) (test 5.90 K/ L 1.80-8.00 ekbv=972) LYMPHOCYTES ABSOLUTE COUNT (BEAKER) (test 2.80 K/ L 1.48-4.50 wsfm=124) MONOCYTES ABSOLUTE COUNT (BEAKER) (test 0.60 K/ L 0.00-1.30 zxjj=030) EOSINOPHILS ABSOLUTE COUNT (BEAKER) (test 0.50 K/ L 0.00-0.50 lolc=692) BASOPHILS ABSOLUTE COUNT (BEAKER) (test 0.10 K/ L 0.00-0.20 kmux=949) SCREEN, [id number] 13:15:00 Test Item Value Reference Range Comments TEST URINE (BEAKER) (test ihmh=365) Negative
[2018-01-21] MEDS ORDERED: PANTOPRAZOLE 40 MG INJ ONE (08:47)
[2018-01-21] MEDS ORDERED: NA CHLORIDE 0.9% 1,000 ML ONE (08:48)
[2018-01-21] MEDS ORDERED: ONDANSETRON 4 MG/2 ML VIAL ONE ×2 (08:48→10:47)
[2018-01-21 08:51] LABS: Absolute Lymphocytes (CBC) 2.4 K/uL (0.7-4.9); Absolute Monocytes 0.7 K/uL (0.1-1.3); Absolute Neutrophil 4.8 K/uL (1.8-8.0); Basophils % 1.2 % (0-1.3); Eosinophils % 4.1 % (0-4.4); Lymphocytes % 29.1 % (15.3-44.8); MCH 27.4 pg (27.0-35.0); MCV 85.8 fL (80-100); MPV 8.1 fL (7.6-11.3); Monocytes % 8.2 % (3.3-12.3)
[2018-01-21 09:15] LABS: Glucose Level 100 mg/dL (65-120); Lipase 12 U/L (22-51)
[2018-01-21 09:22] LABS: ALT/SGPT 165 IU/L (10-60); AST/SGOT 95 IU/L (10-42); Alkaline Phosphatase 235 IU/L (42-121); Amylase Level 61 U/L (28-100); BUN Blood Urea Nitrogen 8 mg/dL (6-20); Bicarbonate 28 mEq/L (21-31); Bilirubin Direct 0.2 mg/dL (0-0.2); Bilirubin Total 0.5 mg/dL (0.3-1.2); Potassium 3.7 mEq/L (3.6-5.0); Protein, Total 7.4 g/dL (6.0-8.3); Sodium Level 137 mEq/L (135-145)
[2018-01-21 10:24] LABS: Urine Blood NEGATIVE (NEG); Urine Glucose NEGATIVE (NEG); Urine Protein NEGATIVE (NEG); Urine Specific Gravity 1.015 (1.005-1.030)
[2018-01-21 10:25] LABS: Urine Bacteria <20 /HPF (<20); Urine Culture Reflex Order NOT NEEDED; Urine RBC <5 /HPF (NONE SEEN)
[2018-01-21] MEDS ORDERED: MORPHINE 4 MG/ML SYR ONE (10:47)
--- NOTE | 2018-01-21 11:05 | EKG ---
Test Date: 2018-01-21 Test Time: 08:40:50 Blindstitch Hemmer: KARTHIK MEASUREMENT RESULTS: Intervals: Rate: 68 MT: 142 QRSD: 86 QT: 380 QTc: 404 [place]: P: 43 MT: 142 QRS: -7 T: 9 INTERPRETIVE STATEMENTS: Normal sinus rhythm with sinus arrhythmia Voltage criteria for left ventricular hypertrophy Abnormal ECG No previous ECG available for comparison Electronically Signed On 01-21-18 11:05:14 CDT by Hari Swift
--- NOTE | 2018-01-21 11:40 | RAD REPORT ---
EXAM DESCRIPTION: CT - Abdomen Pelvis W Contrast - 01/21/2018 11:30 am CLINICAL HISTORY: Abdominal pain, nausea and vomiting COMPARISON: None. TECHNIQUE: Biphasic, helical CT imaging of the abdomen and pelvis was performed following 100 ml non -ionic IV contrast. Oral contrast was given. All CT scans are performed using dose optimization technique as appropriate and may include automated exposure control or mA/KV adjustment according to patient size. FINDINGS: No suspicious findings in the lung bases. The liver, spleen, and pancreas show no suspicious findings. Cholecystectomy clips are present. No bi liary tree dilatation. Symmetric renal function is seen with no hydronephrosis or suspicious renal mass. No pyelonephritis o r acute renal parenchymal process. Contracted urinary bladder shows no suspicious finding. Uterus is somewhat bulky and heterogeneous. Patient likely has multiple fibroids. No suspicious ovarian finding identifiable. Postsurgical changes are noted to the stomach. There is wall thickening and edema in the gastric antr um. No perforation. Mild edema or stranding in the fat adjacent to the gastric antrum anteriorly. Gas tric small bowel anastomosis of the bypass shows no acute finding. No small bowel dilatation or acute small bowel finding. Partially retrocecal appendix without acute finding. No free air, free fluid or pneumatosis. No other areas of inflammatory stranding. No hernia, mass or bulky lymphadenopathy. No adrenal abnormality. No suspicious bony findings. IMPRESSION: Gastric bypass surgical changes are present with wall thickening and edema of the gastri c antrum. Acute antritis and gastric ulceration can have this appearance. No evidence for perforatio n. No bowel obstruction, free air or surgically emergent finding. No other acute GI process seen. Cholecystectomy change with no biliary tree or pancreatic abnormality. Prominent uterus likely containing several small fibroids. No ovarian significant finding.
--- NOTE | 2018-01-21 11:41 | RAD REPORT ---
EXAM DESCRIPTION: Lexi Single View01/21/2018 9:08 am CLINICAL HISTORY: Abdominal pain COMPARISON: none FINDINGS: The lungs appear clear of acute infiltrate. The heart is normal size IMPRESSION: No acute abnormalities displayed
--- NOTE | 2018-01-21 13:29 | EDPHYS ---
Physician Documentation [facility] Name: Tang Sweet Age: 42 yrs Sex: Female : 1975 Arrival Date: 01/21/2018 Time: 08:10 Bed 16 Private MD: ED Physician Cole Leon HPI: 01/21 08:25 This 42 yrs old Black Female presents to ER via Ambulatory with complaints of Abdominal cp Pain, Fever. 08:25 The patient presents with abdominal pain in the periumbilical area. 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 - Social history:: Smoking status: Patient/guardian denies using tobacco, Patient/guardian denies using alcohol. ROS: 08:30 Constitutional: Negative for body aches, chills, fever, poor PO intake. cp 08:30 Eyes: Negative for injury, pain, redness, and discharge. cp 08:30 ENT: Negative for drainage from ear(s), ear pain, sore throat, difficulty swallowing, difficulty handling secretions. Exam: 08:45 ECG was reviewed by the Attending Physician. cp 08:45 Constitutional: The patient appears in no acute distress, alert, awake, cp non-diaphoretic, non-toxic, well developed, well nourished, uncomfortable. 08:45 Head/Face: Normocephalic, atraumatic. Eyes: Pupils equal round and reactive to light, cp extra-ocular motions intact. Lids and lashes normal. Conjunctiva and sclera are non-icteric and not injected. Cornea within normal limits. Periorbital areas with no swelling, redness, or edema. ENT: Nares patent. No nasal discharge, no septal abnormalities noted. Tympanic membranes are normal and external auditory canals are clear. Oropharynx with no redness, swelling, or masses, exudates, or evidence of obstruction, uvula midline. Mucous membranes moist. Chest/axilla: Normal chest wall appearance and motion. Nontender with no deformity. No lesions are appreciated. 08:45 Cardiovascular: Rate: normal, Rhythm: regular, Heart sounds: murmur, not appreciated, Edema: is not appreciated, JVD: is not appreciated. 08:45 Respiratory: the patient does not display signs of respiratory distress, Respirations: normal, no use of accessory muscles, no retractions, no splinting, no tachypnea, labored breathing, is not present, Breath sounds: are clear throughout, no decreased breath sounds, no stridor, no wheezing. 08:45 Abdomen/GI: Inspection: abdomen appears normal, Bowel sounds: active, all quadrants, Palpation: soft, in all quadrants, moderate abdominal tenderness, in the umbilical area, right upper quadrant and left upper quadrant, rebound tenderness, is not appreciated, involuntary guarding, is not appreciated. 08:45 Back: pain, is absent, ROM is normal. 08:45 Skin: cellulitis, is not appreciated, no rash present. 08:45 Neuro: Orientation: to person, place \T\ time. Mentation: lucid, able to follow commands, Cerebellar function: is grossly normal, Motor: moves all fours, strength is normal, Sensation: is normal. Vital Signs: 08:23 BP 124 / 108; Pulse 85; Resp 18; Temp 97.5(O); Pulse Ox 100% on R/A; Weight 73.03 kg; hj Height 5 ft. 3 in. (160.02 cm); 10:30 BP 135 / 98; Pulse 64; Resp 18; Pulse Ox 99% on R/A; em 12:00 BP 129 / 88; Pulse 66; Resp 20; Pulse Ox 99% on R/A; Pain 5/10; em 13:00 BP 116 / 80; Pulse 61; Resp 18; Pulse Ox 99% on R/A; em 08:23 Body Mass Index 28.52 (73.03 kg, 160.02 cm) MDM: 08:16 Patient medically screened. cp 13:27 Data reviewed: vital signs, nurses notes, lab test result(s), radiologic studies, CT cp scan, plain films. 13:27 Test interpretation: by ED physician or midlevel provider: ECG, plain radiologic cp studies. 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 Response to treatment: the patient's symptoms have markedly improved after treatment, and as a result, I will discharge patient. 01/21 08:27 Order name: Amylase, Serum; Complete Time: 09:56 cp 01/21 08:27 Order name: Basic Metabolic Panel; Complete Time: 09:56 cp 01/21 08:27 Order name: CBC with Diff; Complete Time: 09:19 cp 01/21 09:19 Interpretation: Normal except: HGB 11.5; MCHC 31.9; PLT 437. cp 01/21 08:27 Order name: Creatinine for Radiology; Complete Time: 09:19 cp 01/21 08:27 Order name: Hepatic Function; Complete Time: 09:56 cp 01/21 09:56 Interpretation: Normal except: ALK 235; SGOT 95; SGPT 165. cp 01/21 08:27 Order name: Lipase; Complete Time: 09:56 cp 01/21 09:19 Interpretation: LIP 12; Reviewed. cp 01/21 08:27 Order name: Urine Microscopic Only; Complete Time: 12:03 cp 01/21 08:27 Order name: XRAY Chest (1 view); Complete Time: 12:03 cp 01/21 12:03 Interpretation: Report review. cp 01/21 08:27 Order name: Troponin I; Complete Time: 09:56 cp 01/21 09:57 Interpretation: TROP < 0.03; Reviewed. cp 01/21 08:29 Order name: CT Abd/Pelvis - W/Contrast: HX of gastric bypass/sleeve, give oral cp contrast; Complete Time: 12:03 01/21 10:18 Order name: Urine Dipstick--Ancillary (enter results) bd 01/21 10:18 Order name: Urine --Ancillary (enter results) bd 01/21 10:19 Order name: Urine Dipstick-Ancillary; Complete Time: 12:03 EDMS 01/21 10:19 Order name: Urine --Ancillary; Complete Time: 12:03 EDMS 01/21 08:27 Order name: Urine Test (obtain specimen); Complete Time: 09:54 cp 01/21 08:27 Order name: IV Saline Lock; Complete Time: 08:44 cp 01/21 08:27 Order name: Labs collected and sent; Complete Time: 09:04 cp 01/21 08:27 Order name: Urine Dipstick-Ancillary (obtain specimen); Complete Time: 09:54 cp 01/21 08:27 Order name: EKG; Complete Time: 08:28 cp 01/21 08:27 Order name: EKG - Nurse/Tech; Complete Time: 08:44 cp 01/21 12:05 Order name: PO challenge; Complete Time: 12:26 cp EC:45 Rate is 68 beats/min. Rhythm is regular. DE interval is normal. QRS interval is normal. cp QT interval is normal. T waves are Flattened in lead aVF. Interpreted by me. Reviewed by me. Administered Medications: 08:27 Drug: NS 0.9% 1000 ml Route: IV; Rate: 1 bolus; Site: left antecubital; hj 13:58 Follow up: IV Status: Completed infusion; IV Intake: 1000ml em 08:27 Drug: ProTONIX 40 mg Route: IVP; Site: left antecubital; hj 11:09 Follow up: Response: No adverse reaction em 08:31 Drug: Zofran 4 mg Route: IVP; Site: left antecubital; hj 11:09 Follow up: Response: No adverse reaction em 11:16 Drug: morphine 4 mg Route: IVP; Site: left antecubital; la1 12:02 Follow up: Response: No adverse reaction em 11:16 Drug: Zofran 4 mg Route: IVP; Site: left antecubital; la1 12:03 Follow up: Response: No adverse reaction em 13:52 Drug: Bentyl 20 mg Route: PO; em 13:58 Follow up: Response: Medication administered at discharge. em 13:52 Drug: GI Cocktail without - (Maalox Suspension 30 ml, Lidocaine Liquid 2 % 15 em ml) Route: PO; 13:58 Follow up: Response: Medication administered at discharge. em Disposition: 16:52 Co-signature as Attending Physician, Cole Leon MD. rn Disposition: 01/21/18 13:28 Discharged to Home. Impression: Unspecified abdominal pain, Nausea and vomiting. - Condition is Stable. - Discharge Instructions: Clear Liquid Diet, Gastritis, Adult, Nausea and Vomiting. - Prescriptions for Bentyl 20 mg Oral Tablet - take 1 tablet by ORAL route every 6 hours As needed; 20 tablet. Carafate 1 gram Oral Tablet - take 1 tablet by ORAL route 4 times per day take on an empty stomach, beginning on waking and last dose at bedtime. dissolve tablet in 8oz warm water prior to ingestion; 100 tablet. Protonix 40 mg Oral Tablet, Delayed Release (E.C.) - take 1 tablet by ORAL route 2 times per day; 30 tablet. Zofran 4 mg Oral Tablet - take 1 tablet by ORAL route every 12 hours As needed; 20 tablet. - Medication Reconciliation Form, Thank You Letter, Antibiotic Education, Prescription Opioid Use form. 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 - Problem is an ongoing problem. - Symptoms have improved. Signatures: Dispatcher [employer] EDPito Easton, ORTHO/PROSTHETIC AIDE ORTHO/PROSTHETIC AIDE Cole Potrer MD MD rn Attema, Lee, RN RN la1 Foregin Liang RN RN Demetrius Flowers PA PA cp Corrections: (The following items were deleted from the chart) 14:01 13:28 01/21/2018 13:28 Discharged to Home. Impression: Unspecified abdominal pain; em Nausea and vomiting. Condition is Stable. Forms are Medication Reconciliation Form, Thank You Letter, Antibiotic Education, Prescription Opioid Use. 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 Problem is an ongoing problem. Symptoms have improved. cp
--- NOTE | 2018-01-21 13:29 | ER ---
Nurse's Notes [facility] Name: Tang Sweet Age: 42 yrs Sex: Female : 1975 Arrival Date: 01/21/2018 Time: 08:10 Bed 16 Private MD: Diagnosis: Unspecified abdominal pain;Nausea and vomiting Presentation: 01/21 08:23 Presenting complaint: Patient states: im supposed to do an EGD today but they didn't do hj it because my temp is 99.7 and stefania been sick all weekend; my stomach still hurts; reports nausea and vomiting; diarrhea for 3 days;. Transition of care: patient was not received from another setting of care. Onset of symptoms was January 21, 2018. Initial Sepsis Screen: Does the patient meet any 2 criteria? No. Patient's initial sepsis screen is negative. Does the patient have a suspected source of infection? No. Patient's initial sepsis screen is negative. Care prior to arrival: None. 08:23 Method Of Arrival: Ambulatory 08:23 Acuity: MERNA 3 hj Triage Assessment: 08:28 General: Appears in no apparent distress. uncomfortable, Behavior is calm, cooperative, hj appropriate for age. Pain: Complains of pain in abdomen. EENT: No signs and/or symptoms were reported regarding the EENT system. Neuro: Level of Consciousness is awake, alert, obeys commands, Oriented to person, place, time, situation, Appropriate for age. Cardiovascular: Capillary refill < 3 seconds Patient's skin is warm and dry. Respiratory: Airway is patent Respiratory effort is even, unlabored, Respiratory pattern is regular, symmetrical. GI: Reports lower abdominal pain, upper abdominal pain, nausea. : No signs and/or symptoms were reported regarding the genitourinary system. Derm: No signs and/or symptoms reported regarding the dermatologic system. Musculoskeletal: No signs and/or symptoms reported regarding the musculoskeletal system. 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 - Social history:: Smoking status: Patient/guardian denies using tobacco, Patient/guardian denies using alcohol. Screenin:28 Abuse screen: Denies threats or abuse. Denies injuries from another. Nutritional hj screening: No deficits noted. Tuberculosis screening: No symptoms or risk factors identified. Fall Risk None identified. Assessment: 08:30 GI: Bowel sounds present X 4 quads. Abd is soft. hj 09:33 General: Appears in no apparent distress. comfortable, Behavior is calm, cooperative, em appropriate for age. Pain: Complains of pain in abdomen. Neuro: Level of Consciousness is awake, alert, obeys commands, Oriented to person, place, time, situation. Cardiovascular: Capillary refill < 3 seconds Patient's skin is warm and dry. Respiratory: Airway is patent Respiratory effort is even, unlabored, Respiratory pattern is regular, symmetrical. GI: Bowel sounds present X 4 quads. Abd is soft X 4 quads. GI: Reports nausea, vomiting, Patient currently denies diarrhea. : Urine is clear. EENT: No signs and/or symptoms were reported regarding the EENT system. Derm: Skin is intact, Skin is pink, warm \T\ dry. Musculoskeletal: Range of motion: intact in all extremities. 10:30 Reassessment: Patient appears in no apparent distress at this time. Patient and/or em family updated on plan of care and expected duration. Pain level reassessed. Patient is alert, oriented x 3, equal unlabored respirations, skin warm/dry/pink. Patient states symptoms have improved. 11:23 Reassessment: Patient appears in no apparent distress at this time. Patient and/or em family updated on plan of care and expected duration. Pain level reassessed. Patient is alert, oriented x 3, equal unlabored respirations, skin warm/dry/pink. 11:59 Reassessment: Patient appears in no apparent distress at this time. Patient and/or em family updated on plan of care and expected duration. Pain level reassessed. Patient is alert, oriented x 3, equal unlabored respirations, skin warm/dry/pink. Patient states feeling better. 12:59 Reassessment: Patient appears in no apparent distress at this time. Patient and/or em family updated on plan of care and expected duration. Pain level reassessed. Patient is alert, oriented x 3, equal unlabored respirations, skin warm/dry/pink. Vital Signs: 08:23 BP 124 / 108; Pulse 85; Resp 18; Temp 97.5(O); Pulse Ox 100% on R/A; Weight 73.03 kg; hj Height 5 ft. 3 in. (160.02 cm); 10:30 BP 135 / 98; Pulse 64; Resp 18; Pulse Ox 99% on R/A; em 12:00 BP 129 / 88; Pulse 66; Resp 20; Pulse Ox 99% on R/A; Pain 5/10; em 13:00 BP 116 / 80; Pulse 61; Resp 18; Pulse Ox 99% on R/A; em 08:23 Body Mass Index 28.52 (73.03 kg, 160.02 cm) ED Course: 08:10 Patient arrived in ED. rg4 08:16 Demetrius Flowers PA is PHCP. cp 08:16 Cole Leon MD is Attending Physician. cp 08:23 Foreign Liang RN is Primary Nurse. hj 08:25 Triage completed. hj 08:29 Arm band placed on right wrist. hj 08:30 Patient has correct armband on for positive identification. Placed in gown. Bed in low hj position. Call light in reach. Side rails up X 1. 08:40 Initial lab(s) drawn, by me, sent to lab. Inserted saline lock: 22 gauge in left hj antecubital area, using aseptic technique. Blood collected. 08:48 EKG done, by non destructive evaluation technician. reviewed by Demetrius DYER. vh 09:06 X-ray completed. Portable x-ray completed in exam room. Patient tolerated procedure jb2 well. 09:09 XRAY Chest (1 view) In Process Unspecified. EDMS 09:44 No provider procedures requiring assistance completed. em 11:31 CT Abd/Pelvis - W/Contrast: HX of gastric bypass/sleeve, give oral contrast In Process EDMS Unspecified. 14:00 IV discontinued, intact, bleeding controlled, No redness/swelling at site. Pressure em dressing applied. Administered Medications: 08:27 Drug: NS 0.9% 1000 ml Route: IV; Rate: 1 bolus; Site: left antecubital; hj 13:58 Follow up: IV Status: Completed infusion; IV Intake: 1000ml em 08:27 Drug: ProTONIX 40 mg Route: IVP; Site: left antecubital; hj 11:09 Follow up: Response: No adverse reaction em 08:31 Drug: Zofran 4 mg Route: IVP; Site: left antecubital; hj 11:09 Follow up: Response: No adverse reaction em 11:16 Drug: morphine 4 mg Route: IVP; Site: left antecubital; la1 12:02 Follow up: Response: No adverse reaction em 11:16 Drug: Zofran 4 mg Route: IVP; Site: left antecubital; la1 12:03 Follow up: Response: No adverse reaction em 13:52 Drug: Bentyl 20 mg Route: PO; em 13:58 Follow up: Response: Medication administered at discharge. em 13:52 Drug: GI Cocktail without - (Maalox Suspension 30 ml, Lidocaine Liquid 2 % 15 em ml) Route: PO; 13:58 Follow up: Response: Medication administered at discharge. em Intake: 13:58 IV: 1000ml; Total: 1000ml. em Outcome: 13:28 Discharge ordered by MD. cp 13:59 Discharged to home ambulatory. em 13:59 Condition: good 13:59 Discharge instructions given to patient. 13:59 Instructed on discharge instructions, follow up and referral plans. medication usage, Demonstrated understanding of instructions, follow-up care, medications, Prescriptions given X 4. 14:01 Patient left the ED. em Signatures: Dispatcher [employer] EDMin Muir Edgar, SPECIAL EDUCATION SCIENCE TEACHER SPECIAL EDUCATION SCIENCE TEACHER em Mekhi Villagomez, RN RN la1 Jennifer Pedroza Foreign Liang RN RN Demetrius Soliman PA PA cp Garcia, Rubi rg4
[2018-01-21] MEDS ORDERED: DICYCLOMINE HCL 10 MG CAP ONE (13:41)
[2018-01-21] MEDS ORDERED: LIDOCAINE VISCOUS 2% SOLN 15 ML UDC ONE (13:41)
[2018-01-21] MEDS ORDERED: MAGNE/ALUM HYDROXD 30 ML UCUP ONE (13:41)
== END 2018-01-21 14:01 | disposition home or self-care (01) ==
LOC: ER 08:06
DX: R11.2 Nausea with vomiting, unspecified (principal); I10 Essential (primary) hypertension; Z88.0 Allergy status to penicillin
CPT/HCPCS: 36415; 71045; 74177; 80048; 80076; 81003; 81015; 81025; 82150; 83690; 84484; 85025; 93005; 96361; 96374; 96375; 99284; C9113; J2405; J7030; Q9967